=== PATIENT | female | born 1985 | race Two or more races ===

== ENCOUNTER 2019-03-14 13:32 | Emergency (ER) | payer SELFPAY ==
[~2019-03-14] VITALS: Ht 167.6 cm; Wt 49.9 kg
[2019-03-14 13:45] VITALS: BP 93/63
== END 2019-03-14 18:11 | disposition left against medical advice (07) ==
LOC: ER 13:40
DX: R10.31 Right lower quadrant pain (principal); Z53.21 Procedure and treatment not carried out due to patient leaving prior to being seen by health care provider